=== PATIENT | female | born 2000 | race Caucasian/White ===

== ENCOUNTER 2018-10-19 18:10 | Emergency (ER) | payer OTHER ==
[2018-10-19 18:34] VITALS: BP 120/73
--- NOTE | 2018-10-19 18:55 | UC ---
Eye Complaint HPI - HPI Summary HPI Summary: 18-year-old female who has had a stye on both lower eyelids. She also states that she has had her menses over the last 2 months with 1 week of no menses. First she denied being sexually active however she has had intercourse in the past 6 months. She denies any abdominal pain. - History of Current Complaint Chief Complaint: UCGeneralIllness Stated Complaint: PERSONAL Time Seen by Provider: 10/19/18 18:33 Hx Obtained From: Patient Hx Last Menstrual Period: 10/10/18 ?: No Onset/Duration: Gradual Onset Timing: Constant Severity Initially: Mild Severity Currently: Mild Pain Intensity: 6 Location of Injury: Eye Lid (lower) - The lower eyelid had a stye 2 weeks ago and it came to ahead and opened and drained but now has a small scab there., Eye Lid (upper) - The upper eyelid has a stye which drained today and it seems to be healing. Aggravating Factor(s): Nothing Alleviating Factor(s): Nothing Associated Signs And Symptoms: Positive: Negative - Allergies/Home Medications Allergies/Adverse Reactions: Allergies Allergy/AdvReac Type Severity Reaction Status Date / Time No Known Allergies Allergy Verified 10/19/18 18:35 Home Medications: Home Medications Acetaminophen [Pain Relief Extra Strength] 1,000 mg PO Q4HR PRN 10/19/18 [ History Confirmed 10/19/18] diphenhydrAMINE HCl [Allergy Medication] 25 mg PO DAILY 10/19/18 [History Confirmed 10/19/18] PMH/Surg Hx/FS Hx/Imm Hx Previously Healthy: Yes Other GI/ History: patient as had her menses over the past 2 months with only 1 wk of no mense Psychological History: Depression - Surgical History Surgical History: None - Social History Alcohol Use: None Substance Use Type: None Smoking Status (MU): Never Smoked Tobacco - Immunization History Vaccination Up to Date: Yes Review of Systems All Other Systems Reviewed And Are Negative: Yes Skin: Positive: Other - Small stye on her right lower eyelid which appears to be healing. Small scab left lower eyelid which was a stye Genitourinary: Positive: Abnormal Bleeding - Patient states she's had a period over the past 2 months with 1 week of no menses, She has been sexually active for the past 6 month. Is Patient Immunocompromised?: No Physical Exam Triage Information Reviewed: Yes Appearance: Well-Appearing, No Pain Distress, Well-Nourished Vital Signs: Initial Vital Signs Temp 97.3 F 10/19/18 18:27 Pulse 77 10/19/18 18:27 Resp 12 10/19/18 18:27 BP 120/73 10/19/18 18:27 Pulse Ox 100 10/19/18 18:27 Vital Signs Reviewed: Yes Eyes: Positive: Conjunctiva Clear, Other: - Small stye on her right lower eyelid which appears to be healing. Small scab left lower eyelid which was a stye, O inflammation present. ENT: Positive: Hearing grossly normal, Pharynx normal, TMs normal, Uvula midline Neck: Positive: Supple, Nontender, No Lymphadenopathy Respiratory: Positive: Lungs clear, Normal breath sounds, No respiratory distress, No accessory muscle use Cardiovascular: Positive: RRR, No Murmur, Pulses Normal, Brisk Capillary Refill Abdomen Description: Positive: Nontender, No Organomegaly, Soft Bowel Sounds: Positive: Present Musculoskeletal Exam: Normal Neurological Exam: Normal Psychological Exam: Normal Skin: Positive: Other - Stated above. Eye Complaint Course/Dx - Course Course Of Treatment: Patient has no [employer] physician therefore I'm referring her to the [facility] for Reproductive health. The right side appears to be healing. She can apply warm moist compresses to both eyes several times during the day for 20 minutes each time. The left area, if not improved over the next week, she is to see a kick press operator. - Differential Dx/Diagnosis Provider Diagnosis: Stye Discharge - Sign-Out/Discharge Documenting (check all that apply): Patient Departure All imaging exams completed and their final reports reviewed: No Studies - Discharge Plan Condition: Fair Disposition: HOME Patient Education Materials: Stye (ED) Referrals: No Primary Care Phys,NOPCP [Primary Care Provider] - [facility] [Outside] Additional Instructions: Apply warm moist compresses to both eyes. If the area on the left eyelid does not improve then see a kick press operator. Definite follow-up with the [facility] for your concerns regarding irregular periods. - Billing Disposition and Condition Condition: FAIR Disposition: Home
== END 2018-10-19 19:09 | disposition home or self-care (01) ==
LOC: UCCORT 18:10
DX: H00.015 Hordeolum externum left lower eyelid (principal); H00.012 Hordeolum externum right lower eyelid
CPT/HCPCS: 84702; 99201; G0463